=== PATIENT | male | born 1980 | race Hispanic/Latino ===

== ENCOUNTER → 2025-07-24 | Outpatient (CLI) | payer OTHER ==
[~2025-07-24] MED LIST: IOHEXOL 350 MG/ML 100ML INFUS..BTL IV ONE
--- NOTE | 2025-07-25 01:54 | HMCIMG ---
EXAM: CT SCAN OF THE CHEST, ABDOMEN, AND PELVIS WITH CONTRAST Clinical statement: Malignant neoplasm of the rectum; systemic staging. STUDY PROTOCOL: CT radiation dose protocol was performed in accordance with the principles of ALARA. A multislice CT scan of the chest, abdomen, and pelvis was performed from the lung apices through the inguinal region with axial images and multiplanar reformations. RADIATION DOSE: CTDIvol 22.0 mGy; DLP 1511.40 mGycm. CONTRAST: Standard dose of intravenous contrast and oral contrast administered. COMPARISON: None provided. FINDINGS: CHEST: Soft tissues: Axillary and chest wall soft tissues are unremarkable. Bilateral breast implants are present with capsular calcification; no samira-implant fluid collection or mass is seen. Lungs and large airways: Trachea and main bronchi are patent. Lungs are clear without focal consolidation, suspicious pulmonary nodule, or mass. No endobronchial lesion is identified. Pleura: No pleural effusion, pleural thickening, or pneumothorax is seen. Heart and pericardium: Heart size is within normal limits. No pericardial effusion is identified. Aorta: Thoracic aorta is normal in course and caliber without aneurysm or dissection. Pulmonary arteries: Pulmonary arteries are well opacified with no intraluminal filling defect to suggest acute pulmonary embolism. Lymph nodes: No pathologically enlarged mediastinal, hilar, or axillary lymph nodes are identified. Mediastinum and terrance: Mediastinal contours and hilar regions are unremarkable without discrete mass. Chest wall and lower neck: No chest wall mass or fluid collection is seen. Bones/joints: Visualized osseous structures are intact without acute fracture or destructive lesion. Mild degenerative changes only, if any, are within expected limits for age. ABDOMEN AND PELVIS: LIVER: Normal size, morphology, and attenuation with smooth margins. No focal hepatic lesion or calcification is identified. No intrahepatic or extrahepatic biliary ductal dilatation. Portal vein, hepatic veins, and inferior vena cava are normal in caliber. GALL BLADDER: Gallbladder demonstrates normal wall thickness and smooth contour, with uniform fluid density in the lumen. No gallstones, mass, or pericholecystic inflammatory change is identified. Cystic duct region appears unremarkable. PANCREAS: Pancreas is normal in size, contour, and attenuation. Main pancreatic duct is not dilated. No peripancreatic fluid collection or fat stranding. SPLEEN: Spleen is normal in size, morphology, and attenuation without focal lesion. KIDNEYS: Both kidneys are normal in size, shape, position, and attenuation. No renal mass, calculus, or hydronephrosis is identified. Visualized ureters are normal in caliber without filling defect on excretory phase images. GIT /T/ PERITONEAL CAVITY: Stomach is distended with normal wall thickness and contour. Gastroesophageal junction, pylorus, and duodenum appear normal. Jejunal and ileal loops show normal distribution and wall thickness without obstruction, focal thickening, or mesenteric inflammatory change. Appendix is normal in appearance. Large bowel is normal in caliber without proximal colonic dilatation. There is irregular circumferential mural thickening of the [id number] rectum measuring approximately 1.7 cm in maximal wall thickness and 5.9 cm in craniocaudal length, without upstream large-bowel obstruction described. No free intraperitoneal air or fluid is seen. Mesenteric fat and omentum are unremarkable. LYMPHNODES: No pathologically enlarged mesenteric, retroperitoneal, pelvic, or perirectal lymph nodes are identified. RETROPERITONEUM: Both adrenal glands are normal in morphology and attenuation. Abdominal aorta and inferior vena cava are normal in caliber and course without aneurysm. PELVIS: Urinary bladder demonstrates normal wall thickness and uniform enhancement without focal mass. Prostate appears normal in size and contour. No pelvic mass or collection is identified. MUSCULOSKELETAL: Visualized osseous structures are normal in alignment without suspicious lytic or sclerotic lesion or acute fracture. OTHER: Extra-abdominal and paraspinal soft tissues are unremarkable. A small fat-containing umbilical hernia is present without bowel content or inflammatory change. IMPRESSION: * Irregular circumferential mural thickening of the [id number] rectum (wall thickness up to approximately 1.7 cm over a length of about 5.9 cm), in keeping with the known primary rectal malignancy. On CT there is no described proximal large-bowel dilatation, adjacent organ invasion, or bulky perirectal marisol disease, although local T staging and circumferential resection margin assessment are better evaluated with dedicated pelvic MRI. Recommend correlation with endoscopic and histopathologic findings and dedicated pelvic MRI for local staging if not already performed, within a multidisciplinary colorectal oncology/surgical planning pathway. * No CT evidence of distant metastatic disease in the chest, liver, or elsewhere in the abdomen or pelvis, and no pathologically enlarged regional or distant lymph nodes identified on this examination. These findings are compatible with absence of macroscopic thoracic or abdominopelvic metastases by CT at this time, subject to the sensitivity limits of cross-sectional imaging. * Small fat-containing umbilical hernia without evidence of incarceration or strangulation, an incidental finding that may be monitored clinically and referred for elective surgical evaluation if symptomatic. * Otherwise unremarkable contrast-enhanced CT of the chest, abdomen, and pelvis, with intact solid organs and no CT evidence of pulmonary embolism, acute intra-abdominal inflammatory process, or obstructive uropathy. /Zaida
== END | disposition home or self-care (01) ==
LOC: RAH 11:21
PROVIDERS: ATTEND Surgery
DX: C20 Malignant neoplasm of rectum (principal); K42.9 Umbilical hernia without obstruction or gangrene; K62.89 Other specified diseases of anus and rectum; M47.814 Spondylosis without myelopathy or radiculopathy, thoracic region; M47.816 Spondylosis without myelopathy or radiculopathy, lumbar region; Z98.82 Breast implant status
CPT/HCPCS: 71270; 74178; Q9967; 71260; 74177